=== PATIENT | female | born 1940 | race Caucasian/White ===

== ENCOUNTER 2016-12-06 08:57 | Outpatient (CLI) | payer MEDICARE, BC ==
[2016-12-06 10:30] LABS: #Lymphocytes 1.4 thou/uL (1.20-3.40); #Monocytes 0.5 thou/uL (0.11-0.59); #Neutrophils 3.7 thou/uL (1.40-6.50); %Basophils 0.6 % (0.0-1.0); %Eosinophils 0.3 % (0.0-10.0); %Lymphocytes 24.5 % (21.0-51.0); %Monocytes 9.4 % (0.0-10.0); Mean Platelet Volume 6.4 fL (7.4-10.4); Red Blood Cell (RBC) Count 4.67 mill/uL (4.20-5.40); White Blood Cell (WBC) Count 5.6 thou/uL (4.8-10.8)
[2016-12-06 10:47] LABS: Anion Gap 16 mmol/L (10-20); BUN (Urea Nitrogen) 18 mg/dL (9.8-20.1); Calc. Creatinine Clearance 0 mL/min (70-130); Calcium 10.1 mg/dL (7.8-10.44); Carbon Dioxide 26 mmol/L (23-31); Chloride 103 mmol/L (98-107); Estimated GFR-MDRD 48
== END 2016-12-06 08:58 | disposition home or self-care (01) ==
LOC: LABBT 08:57
PROVIDERS: ATTEND Orthopaedic Surgery Hand Surgery
DX: Z01.818 Encounter for other preprocedural examination (principal); S60.041A Contusion of right ring finger without damage to nail, initial encounter
CPT/HCPCS: 80048; 85025; 85610

== ENCOUNTER 2016-12-07 08:17 | Day surgery (SDC) | payer MEDICARE, BC ==
[2016-12-06 09:15] VITALS: BMI 28.3
[2016-12-07] MEDS ORDERED: Bacitracin Zinc Ointment 30 gm TUBE ONE (11:47)
[2016-12-07] MEDS ORDERED: Bupivacaine PF 0.5% 30 ML VIAL ONE (11:47)
[2016-12-07] MEDS ORDERED: Fentanyl 100 MCG/2 ML VIAL ONE ×2 (11:53→14:32)
[2016-12-07] MEDS ORDERED: Dexamethasone 20 MG/5 ML VIAL ONE (12:15)
[2016-12-07] MEDS ORDERED: Ondansetron HCl/PF 4 MG/2 ML Vial ONE (12:15)
[2016-12-07] MEDS ORDERED: Lidocaine 1% PF 5 ML VIAL ONE (12:15)
[2016-12-07] MEDS ORDERED: Metoclopramide HCl 10 MG/2 ML VIAL ONE (12:15)
[2016-12-07] MEDS ORDERED: Propofol 200 MG/20 ML VIAL ONE (12:15)
[2016-12-07] MEDS ORDERED: diphenhydrAMINE HCl 50 MG/ML 1 ML VIAL ONE (12:15)
[2016-12-07] MEDS ORDERED: Betamet Acet/Betamet Na Ph 30 MG/5 ML VIAL ONE (12:59)
[2016-12-07] MEDS ORDERED: Ketorolac Tromethamine 30 MG/ML VIAL ONE (14:26)
--- NOTE | 2016-12-08 00:50 | OP ---
DATE OF PROCEDURE: 12/07/2016 SURGEON: Lonny Bertrand M.D. ANESTHESIA: Slovak anesthesia. General LMA technique augmented by 12 mL metacarpophalangeal join t block. PREOPERATIVE DIAGNOSES: 1. 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 2. Flexor adhesions. 3. Extensor adhesions. POSTOPERATIVE DIAGNOSES: 1. 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 2. Flexor adhesions. 3. Extensor adhesions. 4. No defect in the existence of mass but very long 8 mm wide x 3 cm long fibrotic cord running from the A2 tigist to the volar aspect of the proximal phalangeal joint and the A3 tigist. Tight volar capsule and volar plate with no other adhesions. PROCEDURE PERFORMED: 1. Neuroplasty radial ulnar digital nerve under magnification of right ring finger. 2. Extensor tenolysis, right ring finger. 3. Flexor tenolysis, right ring finger. 4. Removal of fibrotic cord, right ring finger. 5. Volar capsulotomy with release, right ring finger. 6. Intraoperative injection of Celestone. COMPLICATIONS: None. PINNING: No. CELESTONE INJECTION: Yes. SPECIMEN: Adhesions sample. ESTIMATED BLOOD LOSS: 10 mL. TOURNIQUET TIME: 22 minutes. DESCRIPTION OF PROCEDURE: After successful general LMA technique, the limb was prepped and draped. The patient then had time out done appropriately. We injected the digit with 12 mL 0.5% Marcaine m etacarpophalangeal block level. We then tried to close the lysis of adhesions. This did not work. The patient then had the limb exsanguinated, tourniquet inflated to 250 mmHg pressure and we then m melissa a zigzag incision incorporating the transverse scar from the previous ring avulsion type 1 to 2 injury, carried through skin and subcutaneous tissue found extensor mechanism, and there was no visi ble defect in mechanism, only some mild adhesions to the underlying phalanges in the area of the pre vious laceration, so this was released, , and had 3 mL Celestone was placed underneath it. We then turned attention to the palmar side. We made a similar Ana incision incorporating 5 mm distal to the palmar interphalangeal joint crease and then all over to the level of the 5 mm proxim al to the metacarpophalangeal crease. As soon as we opened the skin, we could see a very large fibr otic cord and so it was resected in part after we infused the region. Now, it was resected, we have visualized the neurovascular bundles, we performed a neuroplasty. Rad ial and ulnar aspects have a clear artery on the radial side, but no true pulsatile artery on the ul deacon side, but it must be stated this was the case. Then, we visualized digital nerves as well and s pared them. We made an incision of tendon sheath just proximal to the A3 tigist, dissected down to the volar plate and then released the volar plate and the capsule and checked for any ligaments firs t on the radial side, then repeated the same techniques on the ulnar side. Then, the patient now garcia d a very slow but delivered over a 1 minute extension from -6 degrees to +5 hyperextension at the pr oximal interphalangeal joint. The patient then had the flexor tendons visualized and lifted up, the profundus was lifted up to and independent function released 45 degrees motion from this posi tion in flexion. Now, once we have done this and we were able to get the volar capsule release unde r the technique listed above, we then extended the digit to +5 without any other due resistance. We now replaced Celestone into the tendon, sent the tenolysis sample off, had +5 degrees hyperextens ion that we could now pass to achieve full flexion at the PIP joint. The patient had the tourniquet deflated. Hemostasis obtained. The wound was closed with interrupted 4-0 Monocryl and 4-0 nylon i n a simple pattern. This was also done in contralateral extremity. Bulky dressing was applied and the patient left the operating room and plan for numerous therapy without evidence of anesthetic or operative complication.
== END 2016-12-07 16:45 | disposition home or self-care (01) ==
LOC: SDC 08:17
PROVIDERS: ATTEND Orthopaedic Surgery Hand Surgery
PROC: 0RN Upper Joints, Release (ICD-10-PCS; principal; 2016-12-07)
PROC: 0LN70ZZ Release Right Hand Tendon, Open Approach (ICD-10-PCS; 2016-12-07)
DX: M24.541 Contracture, right hand (principal); M77.9 Enthesopathy, unspecified; J45.909 Unspecified asthma, uncomplicated; K21.9 Gastro-esophageal reflux disease without esophagitis; M06.9 Rheumatoid arthritis, unspecified; E78.5 Hyperlipidemia, unspecified; H35.30 Unspecified macular degeneration; Z91.048 Other nonmedicinal substance allergy status; Z90.710 Acquired absence of both cervix and uterus; Z98.890 Other specified postprocedural states; Z91.040 Latex allergy status; Z88.5 Allergy status to narcotic agent
CPT/HCPCS: 88304; 96374; J0702; J1100; J1200; J1885; J2001; J2405; J2704; J2765; J3010; S0020

== ENCOUNTER 2017-02-10 09:44 | Outpatient (CLI) | payer MEDICARE, BC | END 2017-02-10 09:45 | disposition home or self-care (01) | LOC: BICMAMMO 09:44 | PROVIDERS: ATTEND Family Medicine | DX: Z12.31 Encounter for screening mammogram for malignant neoplasm of breast (principal); Z13.820 Encounter for screening for osteoporosis; Z78.0 Asymptomatic menopausal state | CPT/HCPCS: 77063; 77067; 77080; G0202 ==

== ENCOUNTER 2017-07-21 08:30 | Inpatient (IN) | payer MEDICARE, BC ==
[2017-07-21 09:07] VITALS: BMI 28.7
[2017-08-02] MEDS ORDERED: CEFAZOLIN/Water 2 GM/20 ML SYRINGE ONE (06:59)
[2017-08-02] MEDS ORDERED: Sodium Chloride 0.9% 100 ML ONE (06:59)
[2017-08-02] MEDS ORDERED: Fentanyl 100 MCG/2 ML VIAL ONE ×5 (07:46→12:16)
[2017-08-02] MEDS ORDERED: Midazolam HCl 2 mg/2 ml Vial ONE (07:46)
[2017-08-02] MEDS ORDERED: Ondansetron HCl/PF 4 MG/2 ML Vial IVP PRN ×2 (09:04→11:25)
[2017-08-02] MEDS ORDERED: Promethazine HCl 25 MG/ML VIAL IM PRN ×2 (09:04→11:25)
[2017-08-02] MEDS ORDERED: HYDROcodone/Acetaminophen 10/325 mg Tablet PO PRN (09:04)
[2017-08-02] MEDS ORDERED: Zolpidem Tartrate 5 MG TAB PO PRN (09:04)
[2017-08-02] MEDS ORDERED: Acetaminophen 325 MG TAB PO PRN (09:04)
[2017-08-02] MEDS ORDERED: Fentanyl 100 MCG/2 ML VIAL SLOW IVP PRN (09:04)
[2017-08-02] MEDS ORDERED: traMADol HCl 50 MG TAB PO PRN (09:04)
[2017-08-02] MEDS ORDERED: diphenhydrAMINE 25 MG CAP PO PRN (09:04)
[2017-08-02] MEDS ORDERED: Tranexamic Acid 1,000 MG in Sodium Chloride 0.9% 100 ML IVPB SCH (09:15)
[2017-08-02] MEDS ORDERED: HYDROmorphone 2 MG/ML VIAL SLOW IVP PRN (11:25)
[2017-08-02] MEDS ORDERED: Promethazine HCl 25 MG/ML VIAL SLOW IVP PRN (11:25)
--- NOTE | 2017-08-02 11:25 | OP ---
DATE OF PROCEDURE: 08/02/2017 PREOPERATIVE DIAGNOSIS: End-stage bicompartmental osteoarthritis, right hip. POSTOPERATIVE DIAGNOSIS: End-stage bicompartmental osteoarthritis, right hip. OPERATIVE PROCEDURE: Press-Fit right total hip arthroplasty. SURGEON: Isaiah Bullard M.D. PREPRESS PROOFER: Minh Ramires PA-C. ANESTHESIA: General via endotracheal tube. COMPONENTS USED: [employer] primary Press-Fit size 2 Accolade hip stem with a primary Trita nium 54 mm Press-Fit cluster acetabular shell. A 36 mm 10-degree polyethylene fixed bearing insert w ith a standard offset 36 mm metallic femoral head. ESTIMATED BLOOD LOSS: Less than 100 mL. FINDINGS: End-stage severe degenerative bicompartmental disease, bone on bone arthrosis, periarticul ar osteophyte formation, large serous effusion, and hypertrophic synovium. DRAINS: None. SPECIMENS: None. COMPLICATIONS: None. COUNTS: Correct. INDICATIONS FOR SURGERY: Gemini is a 76-year-old white female who has had progressive right hip, oswaldo in and thigh pain amplified with standing and walking for the last 5-7 years. She has failed conserv ative management and elected to proceed with total hip arthroplasty as a treatment of her pain. PROCEDURE IN DETAIL: After informed consent was obtained in the preoperative holding area, the patie nt was taken to the operative suite where general anesthesia was induced. The patient was then posit ioned in the lateral decubitus position. The hip was then prepped and draped in usual sterile fashio n. The patient received preoperative antibiotics. Prior to incision, time-out was called and all me mbers of the surgical team agreed upon site, surgeon, and patient. After this, a longitudinal incisi on was made directly over the trochanter, noted by palpation extending 2 fingerbreadths above and bel ow the trochanter. The deeper subcutaneous layer was undermined with Bovie electrocautery. The ilio tibial band was encountered and incised sharply and the plane below this was developed bluntly. A grace retractor was placed to hold this opened. The lateral aspect of the trochanter and the abduct or muscles were encountered and then reflected anteriorly off the trochanter using Bovie electrocaute ry. Once this was completed, the anterior capsule was then encountered and identified and copious ca psulotomy was carried out, exposing the femoral neck and head. Dislocation maneuver was then performe d and an in situ provisional neck cut was then made using the oscillating saw. Attention was then tu rned to acetabular preparation and sequential reaming was carried out up to the appropriate diameter and a trial was then malleted into place with good firm resistance and no pullout. The permanent jackie tabular shell was then malleted squarely into place, as was the appropriate liner. Once completed, t he wound was copiously irrigated and attention was then turned to femoral preparation. Flexion and ex ternal rotation was performed of the exposed thigh and femoral elevators were then placed at the prox imal aspect of the wound. Canal finder was used to establish the length of the canal and sequential reaming was carried out, followed by broaching. Once the appropriate stability was established with the trial broaches with both flexion, extension and rotational stability, we did trial with neutral a nd 2 mm offset incremental necks. Once the appropriate size was decided upon, with good stability no rick with flexion, extension, internal and external rotation and shuck being negative, we removed the femoral trial broach and malletted into place the permanent prosthesis with good firm fit, which was also stable to rotation. Again, the hip felt very stable to flexion, extension, internal and externa l rotation. Leg lengths appeared near anatomic clinically and we were quite happy with prosthesis pl acement. Copious irrigation was then carried out through the entirety of the wound. Primary closure of the abductors was accomplished with interrupted #2 Vicryl [id number] stitches and the IT ban d was then closed with interrupted #2 Vicryl, oversewn with a #2 running barbed Quill stitch. Subcut aneous fascia was closed with running barbed Quill stitch and a subcuticular Monocryl barbed Quill st itch was used for skin closure and augmented with skin cement. A sterile dressing was applied. The p rocedure was terminated without any complication. All counts were correct. The patient was awakened in the operative suite and taken to the recovery room in stable condition.
[2017-08-02] MEDS: Ketorolac Tromethamine 30 MG/ML VIAL IM SCH ×2 (13:35→21:03)
[2017-08-02] MEDS: Sodium Chloride 0.9% 1,000 ML IV SCH ×3 (13:35→23:57)
--- NOTE | 2017-08-02 13:42 | RAD ---
TWO VIEWS RIGHT HIP: Date: 08-02-17 Comparison: 08-07-16 History: Evaluate hip following arthroplasty. FINDINGS: There is a right total hip arthroplasty present. There is no evidence for hardware failure. There is no displaced fracture or evidence of dislocation. There is post-operative gas present. IMPRESSION: Status post right total hip arthroplasty with no adverse features seen. POS: [facility]
[2017-08-02] MEDS ORDERED: ePHEDrine/0.9% NaCl/PF SYRINGE 50 mg/10 ml ONE (13:43)
[2017-08-02] MEDS ORDERED: Lidocaine 1% PF 5 ML VIAL ONE (13:43)
[2017-08-02] MEDS ORDERED: Glycopyrrolate 0.2 MG/ML 5 ML SYRINGE ONE (13:43)
[2017-08-02] MEDS ORDERED: PHENYLEPHRINE-NS 100 MCG/ML 10 ML SYRINGE ONE (13:43)
[2017-08-02] MEDS ORDERED: PROPOFOL 200 MG/20 ML VIAL ONE (13:43)
[2017-08-02] MEDS: Fentanyl 100 MCG/2 ML VIAL SLOW IVP PRN ×2 (14:06→18:26)
[2017-08-02] MEDS ORDERED: Mag-Al 1200 mg/1200 mg/30 ML UDCUP PO PRN (14:30)
[2017-08-02] MEDS ORDERED: Senokot 8.6 MG TAB PO PRN (14:30)
[2017-08-02] MEDS ORDERED: Artificial Tears 18 DROP/0.9 ML EA EYE PRN (14:30)
[2017-08-02] MEDS ORDERED: Sodium Chloride 0.65% Nasal 44 ML BOT EA NARE PRN (14:30)
[2017-08-02] MEDS ORDERED: Chloraseptic Spray 180 ml Bottle PO PRN (14:30)
[2017-08-02] MEDS ORDERED: Loperamide HCl 2 MG CAP PO PRN (14:30)
[2017-08-02] MEDS ORDERED: Calcium Carbonate 500 MG ChewTAB PO PRN (14:30)
[2017-08-02] MEDS ORDERED: Diabetic Tussin 200 MG/10 ML UDCUP PO PRN (14:30)
[2017-08-02] MEDS ORDERED: Milk Of Magnesia 30 ML UDCUP PO PRN (14:30)
[2017-08-02] MEDS ORDERED: Loratadine 10 MG TAB PO PRN (14:30)
[2017-08-02] MEDS ORDERED: hydrALAZINE 20 MG/ML VIAL SLOW IVP PRN (14:30)
[2017-08-02] MEDS ORDERED: Eucerin (Mineral Oil/Petrolatum,White) 30 gm Jar TOP PRN (14:30)
[2017-08-02] MEDS: CEFAZOLIN/Water 2 GM/20 ML SYRINGE SLOW IVP SCH ×2 (14:54→23:56)
--- NOTE | 2017-08-02 14:59 | CON ---
DATE OF CONSULTATION: 08/02/2017 PRIMARY CARE PHYSICIAN: Dr. Liat Suárez. PRIMARY ATTENDING: Dr. Isaiah Bullard. REASON FOR CONSULT: Medical comanagement. REASON FOR ADMISSION: Elective admission for right hip replacement. HISTORY OF PRESENT ILLNESS: A 76-year-old female, who has multiple medical problems, who is experiencing increasing right hip pain from osteoarthritis. Pain was getting worse with activity and walking that was limiting her physical activity. Her walking distance was also significantly reduced because of pain. The patient had all trial of conservative measures through Dr. Bullard in his office, but patient did not have any improvement and her symptoms is gradually getting worse and that is why patient decided to go for right hip replacement, which was done earlier today by Dr. Bullard without any complication. Postoperatively, at [facility], we were consulted for medical comanagement. The patient was complaining of pain at surgical site. She denies any UTI symptoms. She denies any constipation, diarrhea, melena, hematochezia. She denies any chest pain, palpitation, shortness of breath. She denies any fever or chills. She denies any viral infection. REVIEW OF SYSTEMS: The following complete review of systems was negative, unless otherwise mentioned in the HPI or below: Constitutional: Weight loss or gain, ability to conduct usual activities. Skin: Rash, itching. Eyes: Double vision, pain. ENT/Mouth: Nose bleeding, neck stiffness, pain, tenderness. Cardiovascular: Palpitations, dyspnea on exertion, orthopnea. Respiratory: Shortness of breath, wheezing, cough, hemoptysis, fever or night sweats. Gastrointestinal: Poor appetite, abdominal pain, heartburn, nausea, vomiting, constipation, or diarrhea. Genitourinary: Urgency, frequency, dysuria, nocturia. Musculoskeletal: Pain, swelling. Neurologic/Psychiatric: Anxiety, depression. Allergy/Immunologic: Skin rash, bleeding tendency. Please see my HPI for pertinent positive and negative. All other review of system reviewed and negative except as mentioned in the HPI. HOSPITAL COURSE: Reviewed. PAST MEDICAL HISTORY: Asthma/COPD, gastroesophageal reflux disease, osteoarthritis, dyslipidemia, pseudogout, sensorineural deafness, peptic ulcer disease, macular degeneration, and dyslipidemia. PAST SURGICAL HISTORY: Hysterectomy, EGD and colonoscopy in 2010, bunionectomy , status post right total hip arthroplasty. PAST PSYCHIATRIC HISTORY: Reviewed and negative. FAMILY HISTORY: Father diseased and he had hypertension, coronary artery disease. Mother also and she had hypertension and stroke. One sibling has a history of hypertension and schizophrenia. Colon cancer to paternal grandfather. Maternal uncle had leukemia. SOCIAL HISTORY: Patient is . She denies any tobacco, alcohol or illicit drug abuse. She is retired. ALLERGIES: ADHESIVE TAPE, LATEX, NATURAL RUBBER. CURRENT HOME MEDICATIONS: Ventolin nebulization 2.5 mg t.i.d., Celebrex 200 mg p.o. at bedtime, multivitamin 1 tablet p.o. daily, omeprazole 20 mg p.o. daily, and Probenecid with Colchicine 0.5/500 one tablet p.o. at bedtime. PHYSICAL EXAMINATION: VITAL SIGNS: Temperature 97.6, pulse 61, respiratory rate 18, saturation 95% on room air, blood pressure 166/71, and weight 178 pounds. GENERAL: Patient is currently alert, awake, no acute distress. HEENT: Normocephalic, atraumatic. Eyes: Pupils round, reactive to light. Extraocular muscle intact. ENT: Oropharynx within normal limits. Moist mucous membranes. No oral lesion, no pharyngeal erythema, no exudate. NECK: Supple, no JVD, no thyromegaly, no carotid bruit, no jugular venous distention. LUNGS: Clear to auscultation without any rhonchi or rales. CARDIAC: S1 and S2 regular. No murmur, no gallop, no rub. ABDOMEN: Soft, bowel sounds present, nontender, nondistended. No organomegaly , no mass, no suprapubic tenderness. BACK: Unremarkable, no CVA tenderness. EXTREMITIES: Upper extremity passive movement of all joints are normal. Lower extremities: No edema. Surgical site is clean and healthy and covered with a dressing. NEUROLOGIC: Nonfocal examination. SIGNIFICANT LABORATORY DATA: CBC: WBC 4.2, hemoglobin 12.7, platelet 269. INR 1.0. BMP: Sodium 142, potassium 4.6, chloride 108, carbon dioxide 26, anion gap 13, BUN 17, creatinine 0.91, glucose 87, calcium 9.5. Urinalysis normal. Hip x-ray status post right total hip arthroplasty changes. Chest x-ray based on my review, no acute cardiopulmonary process. Electrocardiogram based on my review reveals normal sinus rhythm, nonspecific ST -T changes. ASSESSMENT AND PLAN: 1. Status post right total hip replacement for right osteoarthritis. At this point, patient is medically stable. She will get aspirin 81 mg p.o. b.i.d. for thrombosis prophylaxis as per protocol. Her pain will be controlled with pain medication. She will have PT, OT as per [facility] protocol treatment. 2. Asthma/Chronic obstructive pulmonary disease. Continue albuterol nebulization t.i.d. 3. Gastroesophageal reflux disease. Continue Protonix 40 mg p.o. daily. 4. History of pseudogout. Continue Probenecid with Colchicine 0.5/500 one tablet p.o. at bedtime. 5. Deep venous thrombosis prophylaxis. Patient will get aspirin 81 mg p.o. b.i.d. as per protocol. 6. Gastrointestinal prophylaxis. Protonix 40 mg p.o. daily. CODE STATUS: The patient is FULL CODE. Patient does not have any surrogate decision maker. She is making her decision by herself. Disposition plan based on clinical course. Thank you for the consult. We will follow up with you while in hospital. JEANNIE
[2017-08-02] MEDS ORDERED: Albuterol Sulfate 2.5 mg/3 ml Neb NEB PRN (15:00)
[2017-08-02] MEDS: Senokot S 8.6-50 MG TAB PO SCH (20:55)
[2017-08-02] MEDS: Ferrous Gluconate 324 MG TAB PO SCH (20:59)
[2017-08-02] MEDS ORDERED: CeleCOXIB 100 MG CAP PO SCH (21:00)
[2017-08-02] MEDS ORDERED: COLCHICINE PO SCH (21:00)
[2017-08-02] MEDS ORDERED: PROBENECID PO SCH (21:00)
[2017-08-02] MEDS: HYDROcodone/Acetaminophen 10/325 mg Tablet PO PRN (21:01)
[2017-08-03] MEDS: HYDROcodone/Acetaminophen 10/325 mg Tablet PO PRN ×2 (02:10→20:06)
[2017-08-03 04:31] LABS: Hemoglobin 11.1 g/dL (12.0-16.0); Mean Corpuscular HGB CONC 35.2 g/dL (32.0-36.0); Mean Corpuscular Hemoglobin 31.6 pg (27.0-31.0); Mean Corpuscular Volume 89.8 fl (81.0-99.0); Mean Platelet Volume 6.2 fL (7.4-10.4); Platelet Count 216 thou/uL (130-400); RBC Distribution Width 11.9 % (11.5-14.5); White Blood Cell (WBC) Count 4.8 thou/uL (4.8-10.8)
[2017-08-03] MEDS: Ketorolac Tromethamine 30 MG/ML VIAL IM SCH ×3 (05:32→21:25)
[2017-08-03] MEDS: Ondansetron ODT 4 MG TAB PO PRN ×2 (06:35→13:06)
[2017-08-03] MEDS ORDERED: Metoclopramide HCl 10 MG/2 ML VIAL IVP PRN (08:12)
[2017-08-03] MEDS: Multivitamin W/ Minerals 1 TAB PO SCH (09:06)
[2017-08-03] MEDS: Multivit, Therapeutic 1 TAB PO SCH (09:06)
[2017-08-03] MEDS: Ferrous Gluconate 324 MG TAB PO SCH ×2 (09:06→20:05)
[2017-08-03] MEDS: Senokot S 8.6-50 MG TAB PO SCH ×2 (09:07→20:05)
--- NOTE | 2017-08-03 10:43 | PDOC.PN ---
- Subjective Encounter Start Date: 08/03/17 Encounter Start Time: 08:30 -: old records requested/rev Patient seen and examined. this morning she had nausea and vomiting, No overnight events - Objective Resuscitation Status: Resuscitation Status FULL:Full Resuscitation MAR Reviewed: Yes Vital Signs & Weight: Vital Signs (12 hours) Temp Pulse Resp BP Pulse Ox 08/03/17 07:40 97.4 F L 78 18 110/57 L 93 L 08/03/17 04:00 98.1 F 83 18 119/69 93 L 08/02/17 23:57 98.7 F 91 16 143/72 H 92 L Weight Weight 178 lb I&O: 08/02/17 08/03/17 08/04/17 06:59 06:59 06:59 Intake Total 2180 Output Total 2900 Balance -720 Result Diagrams: 08/03/17 03:35 Phys Exam - Physical Examination Constitutional: NAD HEENT: PERRLA, moist MMs, sclera anicteric Neck: no JVD, supple Respiratory: no wheezing, no rales, no rhonchi Cardiovascular: RRR, no significant murmur, no rub Gastrointestinal: soft, non-tender, no distention, positive bowel sounds francis+ Musculoskeletal: no edema, pulses present surgical site with dressing Neurological: non-focal, normal sensation, moves all 4 limbs Psychiatric: normal affect, A&O x 3 Skin: no rash, normal turgor Dx/Plan (1) Status post right hip replacement Code(s): Z96.641 - PRESENCE OF RIGHT ARTIFICIAL HIP JOINT Status: Acute (2) Asthma Code(s): J45.909 - UNSPECIFIED ASTHMA, UNCOMPLICATED Status: Chronic (3) GERD (gastroesophageal reflux disease) Code(s): K21.9 - GASTRO-ESOPHAGEAL REFLUX DISEASE WITHOUT ESOPHAGITIS Status: Chronic (4) Osteoarthritis Code(s): M19.90 - UNSPECIFIED OSTEOARTHRITIS, UNSPECIFIED SITE Status: Chronic (5) Pseudogout Code(s): M11.20 - OTHER CHONDROCALCINOSIS, UNSPECIFIED SITE Status: Chronic - Plan cont current plan of care, plan discussed w/ family, PT/OT, social human services assistants * continue aspirin for DVT prophylaxis * continue protonix for GI prophylaxis * Nerve block as per anesthesia * continue ferrous gluconate * pain controlled with current pain meds. * PT/OT as per [facility] protocol * medication reviewed as below * symptomatic treatment * discharge based on primary team * resume home meds on discharge. * add reglan for nausea and vomiting Review of Systems - Review of Systems Eyes: negative: Pain, Vision Change, Conjunctivae Inflammation, Eyelid Inflammation, Redness, Other ENT: negative: Ear Pain, Ear Discharge, Nose Pain, Nose Discharge, Nose Congestion, Mouth Pain, Mouth Swelling, Throat Pain, Throat Swelling, Other Respiratory: negative: Cough, Dry, Shortness of Breath, Hemoptysis, SOB with Excertion, Pleuritic Pain, Sputum, Wheezing Cardiovascular: negative: chest pain, palpitations, orthopnea, paroxysmal nocturnal dyspnea, edema, light headedness, other Gastrointestinal: Nausea, Vomiting. negative: Abdominal Pain, Diarrhea, Constipation, Melena, Hematochezia, Other Genitourinary: negative: Dysuria, Frequency, Incontinence, Hematuria, Retention , Other Musculoskeletal: negative: Neck Pain, Shoulder Pain, Arm Pain, Back Pain, Hand Pain, Leg Pain, Foot Pain, Other Skin: negative: Rash, Lesions, Nj, Bruising, Other - Medications/Allergies Allergies/Adverse Reactions: Allergies Allergy/AdvReac Type Severity Reaction Status Date / Time adhesive Allergy BLISTERS Verified 07/21/17 09:10 adhesive tape Allergy BLISTERS Verified 07/21/17 09:10 Latex, Natural Rubber Allergy Verified 07/21/17 09:10 STEROIDS Allergy SEVERE Uncoded 12/06/16 09:19 DEPRESSION Medications: Current Medications Acetaminophen (Tylenol) 650 mg PO Q4H PRN PRN Reason: SINGH/ T > 101F; Mild Pain (1-3) Hydrocodone Bitart/Acetaminophen ([place] 10/325) 1 tab PO Q4H PRN PRN Reason: Moderate Pain (4-6) Hydrocodone Bitart/Acetaminophen ([place] 10/325) 2 tab PO Q4H PRN PRN Reason: Severe Pain (7-10) Last Admin: 08/03/17 02:10 Dose: 2 tab Al Hydroxide/Mg Hydroxide (Maalox) 15 ml PO Q4H PRN PRN Reason: Heartburn or Indigestion Albuterol Sulfate (Ventolin) 2.5 mg NEB TID-RT PRN PRN Reason: SOB &/or Wheezing Artificial Tears (Tears Naturale) 0 drop EA EYE PRN PRN PRN Reason: Dry Eyes Aspirin (Aspirin Chewable) 81 mg PO BID [facility] Last Admin: 08/02/17 20:59 Dose: 81 mg Calcium Carbonate (Tums) 1,000 mg PO Q4H PRN PRN Reason: Heartburn or Indigestion Diphenhydramine HCl (Benadryl) 25 mg PO Q6H PRN PRN Reason: Itching Fentanyl (Sublimaze) 50 mcg SLOW IVP Q30MIN PRN PRN Reason: Moderate Pain (4-6) Last Admin: 08/02/17 18:26 Dose: 50 mcg Fentanyl (Sublimaze) 100 mcg SLOW IVP Q1H PRN PRN Reason: Severe Pain (7-10) Ferrous Gluconate (Fergon) 324 mg PO BID [facility] Last Admin: 08/03/17 09:06 Dose: Not Given Guaifenesin (Robitussin Sf) 200 mg PO Q4H PRN PRN Reason: Cough Hydralazine HCl (Apresoline) 10 mg SLOW IVP Q4H PRN PRN Reason: Systolic BP > 180 Sodium Chloride (Normal Saline 0.9%) 1,000 mls @ 100 mls/hr IV .Q10H [facility] Last Admin: 08/02/17 23:57 Dose: 1,000 mls Iron/Minerals/Multivitamins (Theragran M) 1 tab PO DAILY [facility] Last Admin: 08/03/17 09:06 Dose: Not Given Ketorolac Tromethamine (Toradol) 15 mg IM Q8HR [facility] Stop: 08/04/17 14:01 Last Admin: 08/03/17 05:32 Dose: 15 mg Loperamide HCl (Imodium) 2 mg PO PRN PRN PRN Reason: Diarrhea/Loose Stools Loratadine (Claritin) 10 mg PO DAILYPRN PRN PRN Reason: Sinus Symptoms Magnesium Hydroxide (Milk Of Magnesium) 30 ml PO DAILYPRN PRN PRN Reason: Constipation Metoclopramide HCl (Reglan) 10 mg IVP Q8H PRN PRN Reason: Nausea/Vomiting Last Admin: 08/03/17 09:00 Dose: 10 mg Mineral Oil/White Petrolatum (Eucerin Cream) 0 gm TOP BIDPRN PRN PRN Reason: Dry Skin Multivitamins (Theragran) 1 tab PO DAILY [facility] Last Admin: 08/03/17 09:06 Dose: Not Given Ondansetron HCl (Zofran) 4 mg IVP Q6H PRN PRN Reason: Nausea/Vomiting Ondansetron HCl (Zofran Odt) 4 mg PO Q6H PRN PRN Reason: Nausea/Vomiting Last Admin: 08/03/17 06:35 Dose: 4 mg Pantoprazole Sodium (Protonix) 40 mg PO DAILY LUIS ALFREDO (Probenecid/Colchicine [ Probenecid/Colchicine] 1 Tablet ) Hm Med 0 each PO HS LUIS ALFREDO Phenol (Chloraseptic [place] 180 Ml Bot) 0 ml PO PRN PRN PRN Reason: Sore Throat Senna (Senokot) 2 tab PO HSPRN PRN PRN Reason: Constipation Senna/Docusate Sodium (Senokot S) 2 tab PO BID [facility] Last Admin: 08/03/17 09:07 Dose: Not Given Sodium Chloride (Flush - Normal Saline) 10 ml IVF PRN PRN PRN Reason: Saline Flush Sodium Chloride ([place] Nasal [place] 0.65%) 0 ml EA NARE QIDPRN PRN PRN Reason: Nasal Congestion Tramadol HCl (Ultram) 100 mg PO Q6H PRN PRN Reason: Mild Pain (1-3) Zolpidem Tartrate (Ambien) 5 mg PO HSPRN PRN PRN Reason: Insomnia
[2017-08-03] MEDS: Sodium Chloride 0.9% 1,000 ML IV SCH (14:04)
[2017-08-04] MEDS: Sodium Chloride 0.9% 1,000 ML IV SCH ×2 (01:54→14:53)
[2017-08-04 06:19] LABS: Mean Corpuscular HGB CONC 34.4 g/dL (32.0-36.0); Mean Corpuscular Hemoglobin 31.4 pg (27.0-31.0); Mean Corpuscular Volume 91.2 fl (81.0-99.0); Mean Platelet Volume 6.9 fL (7.4-10.4); Platelet Count 162 thou/uL (130-400); RBC Distribution Width 12.2 % (11.5-14.5)
[2017-08-04] MEDS: Ketorolac Tromethamine 30 MG/ML VIAL IM SCH ×2 (07:00→18:02)
[2017-08-04] MEDS: Multivitamin W/ Minerals 1 TAB PO SCH (08:33)
[2017-08-04] MEDS: Ferrous Gluconate 324 MG TAB PO SCH (08:33)
[2017-08-04] MEDS: Senokot S 8.6-50 MG TAB PO SCH (08:33)
[2017-08-04] MEDS: Multivit, Therapeutic 1 TAB PO SCH (08:34)
--- NOTE | 2017-08-04 10:26 | PDOC.PN ---
- Subjective Encounter Start Date: 08/04/17 Encounter Start Time: 07:55 Patient seen and examined. No new complaints. No overnight events - Objective Resuscitation Status: Resuscitation Status FULL:Full Resuscitation MAR Reviewed: Yes Vital Signs & Weight: Vital Signs (12 hours) Temp Pulse Resp BP Pulse Ox 08/04/17 07:55 98.7 F 75 16 125/54 L 93 L 08/04/17 04:18 98.4 F 80 19 121/65 91 L 08/04/17 00:49 98.7 F 83 14 118/63 91 L Weight Admit Weight 178 lb Weight 178 lb I&O: 08/03/17 08/04/17 08/05/17 06:59 06:59 06:59 Intake Total 2180 1010 960 Output Total 2900 2000 700 Balance -720 -990 260 Result Diagrams: 08/04/17 05:21 Phys Exam - Physical Examination Constitutional: NAD HEENT: PERRLA, moist MMs, sclera anicteric Neck: no JVD, supple Respiratory: no wheezing, no rales, no rhonchi Cardiovascular: RRR, no significant murmur, no rub Gastrointestinal: soft, non-tender, no distention, positive bowel sounds Musculoskeletal: no edema, pulses present surgical site with dressing Neurological: non-focal, normal sensation, moves all 4 limbs Psychiatric: normal affect, A&O x 3 Dx/Plan (1) Status post right hip replacement Code(s): Z96.641 - PRESENCE OF RIGHT ARTIFICIAL HIP JOINT Status: Acute (2) Asthma Code(s): J45.909 - UNSPECIFIED ASTHMA, UNCOMPLICATED Status: Chronic (3) GERD (gastroesophageal reflux disease) Code(s): K21.9 - GASTRO-ESOPHAGEAL REFLUX DISEASE WITHOUT ESOPHAGITIS Status: Chronic (4) Osteoarthritis Code(s): M19.90 - UNSPECIFIED OSTEOARTHRITIS, UNSPECIFIED SITE Status: Chronic (5) Pseudogout Code(s): M11.20 - OTHER CHONDROCALCINOSIS, UNSPECIFIED SITE Status: Chronic - Plan cont current plan of care, plan discussed w/ family, PT/OT * continue aspirin for DVT prophylaxis * continue protonix for GI prophylaxis * continue ferrous gluconate * pain controlled with current pain meds. * PT/OT as per [facility] protocol, outpt rehab after discharge * medication reviewed as below * symptomatic treatment * possible discharge today based on primary team * resume home meds on discharge. Review of Systems - Review of Systems Eyes: negative: Pain, Vision Change, Conjunctivae Inflammation, Eyelid Inflammation, Redness, Other ENT: negative: Ear Pain, Ear Discharge, Nose Pain, Nose Discharge, Nose Congestion, Mouth Pain, Mouth Swelling, Throat Pain, Throat Swelling, Other Respiratory: negative: Cough, Dry, Shortness of Breath, Hemoptysis, SOB with Excertion, Pleuritic Pain, Sputum, Wheezing Cardiovascular: negative: chest pain, palpitations, orthopnea, paroxysmal nocturnal dyspnea, edema, light headedness, other Gastrointestinal: negative: Nausea, Vomiting, Abdominal Pain, Diarrhea, Constipation, Melena, Hematochezia, Other Genitourinary: negative: Dysuria, Frequency, Incontinence, Hematuria, Retention , Other Musculoskeletal: negative: Neck Pain, Shoulder Pain, Arm Pain, Back Pain, Hand Pain, Leg Pain, Foot Pain, Other Skin: negative: Rash, Lesions, Nj, Bruising, Other - Medications/Allergies Allergies/Adverse Reactions: Allergies Allergy/AdvReac Type Severity Reaction Status Date / Time adhesive Allergy BLISTERS Verified 07/21/17 09:10 adhesive tape Allergy BLISTERS Verified 07/21/17 09:10 Latex, Natural Rubber Allergy Verified 07/21/17 09:10 STEROIDS Allergy SEVERE Uncoded 12/06/16 09:19 DEPRESSION Medications: Current Medications Acetaminophen (Tylenol) 650 mg PO Q4H PRN PRN Reason: SINGH/ T > 101F; Mild Pain (1-3) Hydrocodone Bitart/Acetaminophen (Vilas 10/325) 1 tab PO Q4H PRN PRN Reason: Moderate Pain (4-6) Hydrocodone Bitart/Acetaminophen (Vilas 10/325) 2 tab PO Q4H PRN PRN Reason: Severe Pain (7-10) Last Admin: 08/03/17 20:06 Dose: 2 tab Al Hydroxide/Mg Hydroxide (Maalox) 15 ml PO Q4H PRN PRN Reason: Heartburn or Indigestion Albuterol Sulfate (Ventolin) 2.5 mg NEB TID-RT PRN PRN Reason: SOB &/or Wheezing Artificial Tears (Tears Naturale) 0 drop EA EYE PRN PRN PRN Reason: Dry Eyes Aspirin (Aspirin Chewable) 81 mg PO BID LUIS ALFREDO Last Admin: 08/04/17 08:33 Dose: 81 mg Calcium Carbonate (Tums) 1,000 mg PO Q4H PRN PRN Reason: Heartburn or Indigestion Diphenhydramine HCl (Benadryl) 25 mg PO Q6H PRN PRN Reason: Itching Fentanyl (Sublimaze) 50 mcg SLOW IVP Q30MIN PRN PRN Reason: Moderate Pain (4-6) Last Admin: 08/02/17 18:26 Dose: 50 mcg Fentanyl (Sublimaze) 100 mcg SLOW IVP Q1H PRN PRN Reason: Severe Pain (7-10) Ferrous Gluconate (Fergon) 324 mg PO BID [facility] Last Admin: 08/04/17 08:33 Dose: 324 mg Guaifenesin (Robitussin Sf) 200 mg PO Q4H PRN PRN Reason: Cough Hydralazine HCl (Apresoline) 10 mg SLOW IVP Q4H PRN PRN Reason: Systolic BP > 180 Sodium Chloride (Normal Saline 0.9%) 1,000 mls @ 100 mls/hr IV .Q10H [facility] Last Admin: 08/04/17 01:54 Dose: Not Given Iron/Minerals/Multivitamins (Theragran M) 1 tab PO DAILY [facility] Last Admin: 08/04/17 08:33 Dose: 1 tab Ketorolac Tromethamine (Toradol) 15 mg IM Q8HR [facility] Stop: 08/04/17 14:01 Last Admin: 08/04/17 07:00 Dose: 15 mg Loperamide HCl (Imodium) 2 mg PO PRN PRN PRN Reason: Diarrhea/Loose Stools Loratadine (Claritin) 10 mg PO DAILYPRN PRN PRN Reason: Sinus Symptoms Magnesium Hydroxide (Milk Of Magnesium) 30 ml PO DAILYPRN PRN PRN Reason: Constipation Metoclopramide HCl (Reglan) 10 mg IVP Q8H PRN PRN Reason: Nausea/Vomiting Last Admin: 08/03/17 09:00 Dose: 10 mg Mineral Oil/White Petrolatum (Eucerin Cream) 0 gm TOP BIDPRN PRN PRN Reason: Dry Skin Multivitamins (Theragran) 1 tab PO DAILY [facility] Last Admin: 08/04/17 08:34 Dose: Not Given Ondansetron HCl (Zofran) 4 mg IVP Q6H PRN PRN Reason: Nausea/Vomiting Ondansetron HCl (Zofran Odt) 4 mg PO Q6H PRN PRN Reason: Nausea/Vomiting Last Admin: 08/03/17 13:06 Dose: 4 mg Pantoprazole Sodium (Protonix) 40 mg PO DAILY [facility] Last Admin: 08/04/17 08:33 Dose: 40 mg (Probenecid/Colchicine [ Probenecid/Colchicine] 1 Tablet ) Hm Med 0 each PO HS [facility] Phenol (Chloraseptic Bourbon 180 Ml Bot) 0 ml PO PRN PRN PRN Reason: Sore Throat Senna (Senokot) 2 tab PO HSPRN PRN PRN Reason: Constipation Senna/Docusate Sodium (Senokot S) 2 tab PO BID [facility] Last Admin: 08/04/17 08:33 Dose: 2 tab Sodium Chloride (Flush - Normal Saline) 10 ml IVF PRN PRN PRN Reason: Saline Flush Last Admin: 08/03/17 21:25 Dose: 10 ml Sodium Chloride (Coram Nasal Bourbon 0.65%) 0 ml EA NARE QIDPRN PRN PRN Reason: Nasal Congestion Tramadol HCl (Ultram) 100 mg PO Q6H PRN PRN Reason: Mild Pain (1-3) Zolpidem Tartrate (Ambien) 5 mg PO HSPRN PRN PRN Reason: Insomnia
[2017-08-04 11:59] VITALS: BP 121/58; TEMP 97.6
--- NOTE | 2017-08-05 07:12 | DIS ---
DATE OF ADMISSION: 08/02/2017 DATE OF DISCHARGE: 08/04/2017 DISCHARGE DISPOSITION: Home. PRIMARY DISCHARGE DIAGNOSIS: Status post right hip replacement. SECONDARY DISCHARGE DIAGNOSES: Asthma, GERD, osteoarthritis, pseudogout. PRIMARY PROCEDURE/OPERATION: Right hip replacement. RADIOLOGICAL INVESTIGATION: Hip x-ray. SIGNIFICANT LABORATORY DATA: Hemoglobin 11.0. DISCHARGE MEDICATIONS: Ventolin nebulization t.i.d., Celebrex 200 mg p.o. at bedtime, Easley 1-2 tabl ets q.6 hourly p.r.n., multivitamin 1 tablet p.o. daily, omeprazole 20 mg p.o. daily. probenecid wit h colchicine 1 tablet p.o. at bedtime, aspirin 81 mg p.o. b.i.d. CONTRAINDICATIONS: None. CODE STATUS: FULL CODE. INPATIENT CONSULTANTS: Dr. Bullard was primary while in hospital. Sound Team was consulted for medic al comanagement. TEST RESULTS PENDING ON DISCHARGE: None. ALLERGIES: ADHESIVE and NATURAL RUBBER. DISCHARGE PLAN: Post hospital, the patient will follow up with primary care physician, Dr. Bullard as instructed. The patient has appointment with Dr. Bullard on 08/17/2017 at 10:00 a.m. HOSPITAL COURSE: A 76-year-old female who was admitted for right hip replacement which was done by Ankit Bullard and postoperatively Sound Team was consulted for medical comanagement. The patient's medic al problems remains stable while in hospital and upon discharge, we continued her home medication and the patient was discharged home in the evening time. Please see my progress note from today for further detail.
== END 2017-08-04 18:03 | disposition home or self-care (01) | DRG 470 ==
LOC: SJJU 08-02 05:33
PROVIDERS: ADMIT Orthopaedic Surgery; ATTEND Orthopaedic Surgery
PROC: 0SR902A Replacement of Right Hip Joint with Metal on Polyethylene Synthetic Substitute, Uncemented, Open Approach (ICD-10-PCS; principal; 2017-08-02)
DX: M16.11 Unilateral primary osteoarthritis, right hip (principal); J45.909 Unspecified asthma, uncomplicated; K21.9 Gastro-esophageal reflux disease without esophagitis; E78.5 Hyperlipidemia, unspecified; M06.9 Rheumatoid arthritis, unspecified; E78.00 Pure hypercholesterolemia, unspecified; M11.20 Other chondrocalcinosis, unspecified site; Z90.710 Acquired absence of both cervix and uterus
CPT/HCPCS: 36415; 85027; C1776; G8978-GP-CM; G8979-GP-CK; G8987-GO-CK; G8988-GO-CI; J1885; J2001; J2250; J2704; J2765; J3010; J3370; J7050; Q0162

== ENCOUNTER 2017-07-21 08:43 | Outpatient (CLI) | payer MEDICARE, BC ==
[2017-07-21 10:30] LABS: Bilirubin Negative (Negative); Blood, Urine Negative (Negative); Clarity CLEAR (Clear); Glucose, Urine (Dipstick) Negative (Negative); Leukocyte Negative (Negative); Nitrite Negative (Negative); Protein, Urine (Dipstick) Negative (Neg-Trace); Specific Gravity, Urine 1.011 (1.002-1.036); Urobilinogen 0.2 mg/dL (0.2-1.0); pH, Urine 5.5 (5.0-9.0)
[2017-07-21 10:35] LABS: Bacteria/HPF None Seen HPF (None Seen); Hyaline Casts/LPF 0-3 HYALINE CAST LPF (0-3 Hyaline); Pathc Cast-AUWi Flag 0.58 (0-2.49); RBC/HPF 0-3 HPF (0-3); Squamous Epithelial 0-3 HPF (0-3); WBC/HPF 0-3 HPF (0-3)
--- NOTE | 2017-07-21 11:44 | RAD ---
TWO VIEWS CHEST: Comparison: 04-22-09 History: Pre-operative radiograph. FINDINGS: Two views of the chest show normal sized cardiomediastinal silhouette. There is no evidence of consol idation, mass, or pleural effusion. The bones are unremarkable. IMPRESSION: No evidence of acute cardiopulmonary disease. POS: [facility]
== END 2017-07-21 08:44 | disposition home or self-care (01) ==
LOC: LABBT 08:43
PROVIDERS: ATTEND Orthopaedic Surgery
DX: Z01.818 Encounter for other preprocedural examination (principal); M16.11 Unilateral primary osteoarthritis, right hip
CPT/HCPCS: 71046; 81001; 87081; 93005; 93010

== ENCOUNTER 2017-07-27 11:24 | Outpatient (CLI) | payer MEDICARE, BC ==
[2017-07-27 11:55] LABS: #Lymphocytes 1.3 thou/uL (1.20-3.40); #Monocytes 0.4 thou/uL (0.11-0.59); #Neutrophils 2.5 thou/uL (1.40-6.50); %Basophils 0.1 % (0.0-1.0); %Eosinophils 0.2 % (0.0-10.0); %Lymphocytes 30.8 % (21.0-51.0); %Neutrophils 59.9 % (42.0-75.0); Hemoglobin 12.7 g/dL (12.0-16.0); Mean Corpuscular HGB CONC 35.6 g/dL (32.0-36.0); Mean Corpuscular Hemoglobin 31.7 pg (27.0-31.0); Mean Corpuscular Volume 89.1 fl (81.0-99.0); Mean Platelet Volume 6.1 fL (7.4-10.4); Platelet Count 269 thou/uL (130-400); RBC Distribution Width 11.7 % (11.5-14.5); Red Blood Cell (RBC) Count 4.02 mill/uL (4.20-5.40); White Blood Cell (WBC) Count 4.2 thou/uL (4.8-10.8)
[2017-07-27 12:01] LABS: Prothrombin Time 13.2 SEC (12.0-14.7)
[2017-07-27 12:30] LABS: Anion Gap 13 mmol/L (10-20); BUN (Urea Nitrogen) 17 mg/dL (9.8-20.1); Calc. Creatinine Clearance 0 mL/min (70-130); Calcium 9.5 mg/dL (7.8-10.44); Carbon Dioxide 26 mmol/L (23-31); Chloride 108 mmol/L (98-107); Estimated GFR-MDRD 60; Glucose 87 mg/dL (83-110); Potassium 4.6 mmol/L (3.5-5.1); Sodium 142 mmol/L (136-145)
== END 2017-07-27 11:25 | disposition home or self-care (01) ==
LOC: LABBT 11:24
PROVIDERS: ATTEND Orthopaedic Surgery
DX: Z01.812 Encounter for preprocedural laboratory examination (principal); M16.11 Unilateral primary osteoarthritis, right hip
CPT/HCPCS: 80048; 85025; 85610; 86850; 86900; 86901

== ENCOUNTER 2018-02-13 10:55 | Outpatient (CLI) | payer MEDICARE, BC | END 2018-02-13 10:56 | disposition home or self-care (01) | LOC: BICMAMMO 10:55 | PROVIDERS: ATTEND Family Medicine | DX: Z12.31 Encounter for screening mammogram for malignant neoplasm of breast (principal) | CPT/HCPCS: 77063; 77067 ==

== ENCOUNTER 2018-12-14 07:37 | Outpatient (CLI) | payer MEDICARE, BC ==
--- NOTE | 2018-12-14 09:55 | BD ---
BONE DENSITOMETRY USING DEXA: HISTORY: Post menopausal screening for osteoporosis. FINDINGS LUMBAR SPINE BMD (g/cm2) T-SCORE Z-SCORE L1 1.074 0.8 2.9 L2 1.206 1.6 4.0 L3 1.264 1.6 4.2 L4 1.203 1.2 3.9 TOTAL 1.190 1.3 3,7 BMD (g/cm2) T-SCORE Z-SCORE NECK 0.775 -0.7 1.5 TOTAL: 0.907 -0.3 1.5 The 10 year fracture risk for a major osteoporotic fracture is 9.2% and for a hip fracture is 1.2%. IMPRESSION: Normal bone mineral density. POS: OFF
== END 2018-12-14 07:38 | disposition home or self-care (01) ==
LOC: BICMAMMO 07:37
PROVIDERS: ATTEND Internal Medicine Rheumatology
DX: M81.0 Age-related osteoporosis without current pathological fracture (principal)
CPT/HCPCS: 77080

== ENCOUNTER 2019-01-21 13:42 | Emergency (ER) | payer MEDICARE, BC ==
[2019-01-21 14:42] LABS: Bilirubin Negative (Negative); Blood, Urine Negative (Negative); Clarity Clear (Clear); Glucose, Urine (Dipstick) Normal (Negative); Leukocyte 250 Leu/uL (Negative); Mucous/LPF Rare LPF (<2+); Nitrite 1+ (Negative); Protein, Urine (Dipstick) Negative (Neg-Trace); RBC/HPF 0-3 HPF (0-3); Squamous Epithelial 0-3 HPF (0-3); Urobilinogen Normal mg/dL (Less than 2); WBC/HPF 21-50 HPF (0-3)
[2019-01-21 14:54] LABS: Bacteria/HPF 4+ HPF (None Seen)
[2019-01-21] MEDS ORDERED: cefTRIAXone\\ROCEPHIN 1 GM VIAL ONE ×2 (15:31→15:40)
[2019-01-21] MEDS ORDERED: Lidocaine 1% (PF) 30 ML VIAL ONE (15:31)
[2019-01-21] MEDS ORDERED: Lidocaine 1% PF 5 ML VIAL ONE (15:40)
== END 2019-01-21 15:50 | disposition home or self-care (01) ==
LOC: ERS 13:42
DX: N39.0 Urinary tract infection, site not specified (principal); M10.9 Gout, unspecified; K21.9 Gastro-esophageal reflux disease without esophagitis; F41.9 Anxiety disorder, unspecified; F32.9 Major depressive disorder, single episode, unspecified
CPT/HCPCS: 81003; 81015; 87077; 87086; 87186; 96372; 99283; J0696; J2001

== ENCOUNTER 2019-02-14 10:02 | Outpatient (CLI) | payer MEDICARE, BC ==
--- NOTE | 2019-02-14 10:53 | MMO ---
Bilateral MAMMO Bilat Screen [facility]. CLINICAL HISTORY: Patient is 78 years old and is seen for screening. The patient has no family history of breast cancer. The patient has no personal history of cancer. VIEWS: The views performed were: bilateral craniocaudal with tomosynthesis and bilateral mediolateral oblique with tomosynthesis. FILMS COMPARED: The present examination has been compared to prior imaging studies performed at [facility] on 02/26/2015, 03/02/2016, 02/10/2017 and 02/13/2018. This study has been interpreted with the assistance of computer-aided detection. MAMMOGRAM FINDINGS: There are scattered fibroglandular densities. There are benign appearing and vascular calcifications seen in both breasts. There are no suspicious masses, suspicious calcifications, or new areas of architectural distortion. IMPRESSION: THERE IS NO MAMMOGRAPHIC EVIDENCE OF MALIGNANCY. A ROUTINE FOLLOW-UP MAMMOGRAM IN 1 YEAR IS RECOMMENDED. THE RESULTS OF THIS EXAM WERE SENT TO THE PATIENT. ACR BI-RADS Category 2 - Benign finding MAMMOGRAPHY NOTE: 1. A negative mammogram report should not delay a biopsy if a dominant of clinically suspicious mass is present. 2. Approximately 10% to 15% of breast cancers are not detected by mammography. 3. Adenosis and dense breasts may obscure an underlying neoplasm. Reported by: JAS XIONG MD Electonically Signed: [id number]
== END 2019-02-14 10:03 | disposition home or self-care (01) ==
LOC: BICMAMMO 10:02
PROVIDERS: ATTEND Family Medicine
DX: Z12.31 Encounter for screening mammogram for malignant neoplasm of breast (principal)
CPT/HCPCS: 77063; 77067

== ENCOUNTER 2020-02-19 10:13 | Outpatient (CLI) | payer MEDICARE, BC ==
--- NOTE | 2020-02-19 11:32 | MMO ---
Bilateral MAMMO Bilat Screen [facility]. CLINICAL HISTORY: Patient is 79 years old and is seen for screening. The patient has no family history of breast cancer. The patient has no personal history of cancer. VIEWS: The views performed were: bilateral craniocaudal with tomosynthesis and bilateral mediolateral oblique with tomosynthesis. FILMS COMPARED: The present examination has been compared to prior imaging studies performed at [facility] on 03/02/2016, 02/10/2017, 02/13/2018 and 02/14/2019. This study has been interpreted with the assistance of computer-aided detection. MAMMOGRAM FINDINGS: There are scattered fibroglandular densities. Benign calcifications are noted bilaterally. There are no suspicious masses, suspicious calcifications, or new areas of architectural distortion. IMPRESSION: THERE IS NO MAMMOGRAPHIC EVIDENCE OF MALIGNANCY. A ROUTINE FOLLOW-UP MAMMOGRAM IN 1 YEAR IS RECOMMENDED. THE RESULTS OF THIS EXAM WERE SENT TO THE PATIENT. ACR BI-RADS Category 2 - Benign finding MAMMOGRAPHY NOTE: 1. A negative mammogram report should not delay a biopsy if a dominant of clinically suspicious mass is present. 2. Approximately 10% to 15% of breast cancers are not detected by mammography. 3. Adenosis and dense breasts may obscure an underlying neoplasm. Reported by: CLEM RINCON MD Electonically Signed: [id number]
== END 2020-02-19 10:14 | disposition home or self-care (01) ==
LOC: BICMAMMO 10:13
PROVIDERS: ATTEND Family Medicine
DX: Z12.31 Encounter for screening mammogram for malignant neoplasm of breast (principal)
CPT/HCPCS: 77063; 77067

== ENCOUNTER 2020-07-26 02:25 | Inpatient (IN) | payer MEDICARE, BC ==
[2020-07-26 03:10] LABS: #Lymphocytes 1.6 thou/uL (1.20-3.40); #Monocytes 0.7 thou/uL (0.11-0.59); #Neutrophils 3.6 thou/uL (1.40-6.50); %Basophils 0.3 % (0.0-1.0); %Eosinophils 0.2 % (0.0-10.0); %Lymphocytes 26.6 % (21.0-51.0); %Monocytes 11.4 % (0.0-10.0); %Neutrophils 61.4 % (42.0-75.0); Hemoglobin 13.3 g/dL (12.0-16.0); Mean Corpuscular HGB CONC 33.9 g/dL (32.0-36.0); Mean Corpuscular Hemoglobin 30.8 pg (27.0-31.0); Mean Corpuscular Volume 90.9 fL (78.0-98.0); Mean Platelet Volume 6.1 fL (7.4-10.4); Platelet Count 298 thou/uL (130-400); Red Blood Cell (RBC) Count 4.31 mill/uL (4.20-5.40); White Blood Cell (WBC) Count 5.9 thou/uL (4.8-10.8)
[2020-07-26 03:32] LABS: ALT (SGPT) 13 U/L (8-55); AST (SGOT) 14 U/L (5-34); Albumin 4.1 g/dL (3.4-4.8); Alkaline Phosphatase 65 U/L (40-110); Anion Gap 13 mmol/L (10-20); BUN (Urea Nitrogen) 31 mg/dL (9.8-20.1); Bilirubin, Total 0.5 mg/dL (0.2-1.2); Calc. Creatinine Clearance 0 mL/min (70-130); Calcium 10.2 mg/dL (7.8-10.44); Carbon Dioxide 26 mmol/L (23-31); Chloride 105 mmol/L (98-107); Globulin 2.7 g/dL (2.4-3.5); Glucose 104 mg/dL (83-110); Potassium 4.9 mmol/L (3.5-5.1); Protein, Total 6.8 g/dL (5.8-8.1); Sodium 139 mmol/L (136-145)
[2020-07-26] MEDS ORDERED: Acetaminophen 325 MG TAB PO PRN (05:16)
[2020-07-26] MEDS ORDERED: Nitroglycerin 0.4 MG TAB (25 Tab Bottle) SL PRN (05:16)
[2020-07-26] MEDS ORDERED: Ondansetron ODT 4 MG TAB PO PRN (05:16)
[2020-07-26] MEDS ORDERED: Ondansetron PF 4 MG/2 ML Vial IVP PRN (05:16)
[2020-07-26] MEDS ORDERED: Aspirin Chewable 81 MG TAB PO SCH (05:45)
[2020-07-26 06:48] LABS: Troponin I Less than 0.010 ng/mL (< 0.028)
[2020-07-26] MEDS ORDERED: Enoxaparin Sodium 40 MG/0.4 ML SYRINGE SC SCH (09:00)
[2020-07-26 09:45] LABS: Troponin I Less than 0.010 ng/mL (< 0.028)
[2020-07-26] MEDS ORDERED: Enoxaparin Sodium 40 MG/0.4 ML SYRINGE ONE (09:46)
[2020-07-26] MEDS ORDERED: Aspirin Chewable 81 MG TAB ONE (09:46)
[2020-07-26] MEDS: Aspirin Chewable 81 MG TAB PO SCH (09:54)
[2020-07-26] MEDS: Enoxaparin Sodium 40 MG/0.4 ML SYRINGE SC SCH (09:54)
[2020-07-26] MEDS ORDERED: Regadenoson 0.4 MG/5 ML SYRINGE ONE (12:26)
[2020-07-26] MEDS ORDERED: Sodium Chloride 0.9% 1,000 ML IV SCH (19:45)
[2020-07-26] MEDS ORDERED: Amlodipine 5 MG TAB PO SCH (19:45)
[2020-07-26 20:29] VITALS: BMI 26.5
[2020-07-27 06:00] LABS: #Lymphocytes 1.3 thou/uL (1.20-3.40); #Monocytes 0.6 thou/uL (0.11-0.59); #Neutrophils 2.9 thou/uL (1.40-6.50); %Basophils 0.8 % (0.0-1.0); %Eosinophils 0.1 % (0.0-10.0); %Lymphocytes 27.7 % (21.0-51.0); %Monocytes 11.8 % (0.0-10.0); %Neutrophils 59.7 % (42.0-75.0); Hemoglobin 13.5 g/dL (12.0-16.0); Mean Corpuscular HGB CONC 35.3 g/dL (32.0-36.0); Mean Corpuscular Hemoglobin 32.4 pg (27.0-31.0); Mean Corpuscular Volume 91.7 fL (78.0-98.0); Mean Platelet Volume 6.1 fL (7.4-10.4); Platelet Count 268 thou/uL (130-400); Red Blood Cell (RBC) Count 4.18 mill/uL (4.20-5.40); White Blood Cell (WBC) Count 4.8 thou/uL (4.8-10.8)
[2020-07-27 06:28] LABS: Anion Gap 12 mmol/L (10-20); Calc. Creatinine Clearance 60 mL/min (70-130); Calcium 8.9 mg/dL (7.8-10.44); Carbon Dioxide 24 mmol/L (23-31); Chloride 107 mmol/L (98-107); Glucose 101 mg/dL (83-110); Potassium 4.6 mmol/L (3.5-5.1); Sodium 138 mmol/L (136-145)
[2020-07-27 06:34] LABS: BUN (Urea Nitrogen) 27 mg/dL (9.8-20.1)
[2020-07-27] MEDS ORDERED: Amlodipine 5 MG TAB PO SCH (09:00)
[2020-07-27] MEDS: Aspirin Chewable 81 MG TAB PO SCH (09:57)
[2020-07-27] MEDS: Enoxaparin Sodium 40 MG/0.4 ML SYRINGE SC SCH (09:57)
[2020-07-27] MEDS ORDERED: Communication Order-Pharmacy FS SCH (12:30)
[2020-07-27 15:13] LABS: SARS-CoV-2 PCR by NAA Not Detected (NotDetected)
[2020-07-27] MEDS ORDERED: PROBENECID PO SCH (21:00)
[2020-07-27] MEDS ORDERED: Lisinopril 10 MG TAB PO SCH (21:00)
[2020-07-27] MEDS ORDERED: DULoxetine 60 MG CAP PO SCH (21:00)
[2020-07-27] MEDS ORDERED: Fish Oil 1,000 MG CAP PO SCH (21:00)
[2020-07-27] MEDS ORDERED: Multivit, Therapeutic 1 TAB PO SCH (21:00)
[2020-07-27] MEDS ORDERED: COLCHICINE PO SCH (21:00)
[2020-07-27] MEDS ORDERED: Metamucil PACK PO SCH (21:00)
[2020-07-28] MEDS: Sodium Chloride 0.9% 1,000 ML IV SCH ×3 (00:37→11:34)
[2020-07-28 06:17] LABS: PTT 30.7 sec (22.9-36.1); Prothrombin Time 12.9 sec (12.0-14.7)
[2020-07-28 06:27] LABS: Anion Gap 11 mmol/L (10-20); BUN (Urea Nitrogen) 23 mg/dL (9.8-20.1); Calc. Creatinine Clearance 60 mL/min (70-130); Calcium 8.9 mg/dL (7.8-10.44); Carbon Dioxide 23 mmol/L (23-31); Chloride 107 mmol/L (98-107); Glucose 95 mg/dL (83-110); Potassium 4.3 mmol/L (3.5-5.1); Sodium 137 mmol/L (136-145)
[2020-07-28] MEDS: Aspirin Chewable 81 MG TAB PO SCH (07:14)
[2020-07-28] MEDS ORDERED: Lidocaine 1% (PF) 30 ML VIAL ONE (09:34)
[2020-07-28] MEDS ORDERED: Fentanyl 100 MCG/2 ML VIAL ONE (10:40)
[2020-07-28] MEDS ORDERED: Midazolam HCl 2 mg/2 ml Vial ONE (10:40)
[2020-07-28] MEDS ORDERED: Iopamidol 370 76% 100 ML VIAL ONE (10:56)
[2020-07-28] MEDS ORDERED: Sodium Chloride 0.9% 200 ML IV PRN (11:06)
[2020-07-28] MEDS ORDERED: Acetaminophen/Codeine 30-300mg Tablet PO PRN ×2 (11:06)
[2020-07-28 15:04] VITALS: BP 146/67; TEMP 97.9
[2020-07-28 17:43] LABS: Cardiac Risk 4.3 (Less than 4.5)
[2020-07-28] MEDS ORDERED: Atorvastatin Calcium 10 MG TAB PO SCH (21:00)
== END 2020-07-28 17:10 | disposition home or self-care (01) | DRG 287 ==
LOC: ERS 02:25 → ERHOLD 04:44 → 2SW 18:19 → OBSVTOIN 07-27 16:19
PROVIDERS: ADMIT Student in an Organized Health Care Education/Training Program; ATTEND Internal Medicine
PROC: 4A023N7 Measurement of Cardiac Sampling and Pressure, Left Heart, Percutaneous Approach (ICD-10-PCS; principal; 2020-07-28)
PROC: B2111ZZ Fluoroscopy of Multiple Coronary Arteries using Low Osmolar Contrast (ICD-10-PCS; 2020-07-28)
DX: I95.1 Orthostatic hypotension (principal); N17.9 Acute kidney failure, unspecified; R07.9 Chest pain, unspecified; M19.90 Unspecified osteoarthritis, unspecified site; M10.9 Gout, unspecified; Z96.641 Presence of right artificial hip joint; I12.9 Hypertensive chronic kidney disease with stage 1 through stage 4 chronic kidney disease, or unspecified chronic kidney disease; N18.30 Chronic kidney disease, stage 3 unspecified; I25.10 Atherosclerotic heart disease of native coronary artery without angina pectoris; K21.9 Gastro-esophageal reflux disease without esophagitis; Z20.822 Contact with and (suspected) exposure to COVID-19; Z90.710 Acquired absence of both cervix and uterus; Z88.5 Allergy status to narcotic agent; Z91.040 Latex allergy status; Z79.899 Other long term (current) drug therapy
CPT/HCPCS: 36415; 71045; 78452; 80048; 80053; 80061; 84484; 85025; 85610; 85730; 87635; 93005; 93017; 93458; 94760; 96372; 99152; A9500; G0378; J1650; J2001; J2250; J2785; J3010; Q9967; U0003; U0005

== ENCOUNTER 2020-08-21 15:01 | Outpatient (CLI) | payer MEDICARE, BC | END 2020-08-21 15:02 | disposition home or self-care (01) | LOC: BICMAMMO 15:01 | PROVIDERS: ATTEND Internal Medicine Rheumatology | DX: M81.0 Age-related osteoporosis without current pathological fracture (principal); M25.562 Pain in left knee; M17.12 Unilateral primary osteoarthritis, left knee | CPT/HCPCS: 77080 ==

== ENCOUNTER 2021-11-18 09:52 | Outpatient (CLI) | payer MEDICARE, BC | END 2021-11-18 09:53 | disposition home or self-care (01) | LOC: BICMAMMO 09:52 | PROVIDERS: ATTEND Family Medicine | DX: Z12.31 Encounter for screening mammogram for malignant neoplasm of breast (principal) | CPT/HCPCS: 77063; 77067 ==

== ENCOUNTER 2022-04-20 12:24 | Outpatient (CLI) | payer MEDICARE, BC | END 2022-04-20 12:25 | disposition home or self-care (01) | LOC: MRI 12:24 | PROVIDERS: ATTEND Family Medicine | DX: M47.26 Other spondylosis with radiculopathy, lumbar region (principal); M51.16 Intervertebral disc disorders with radiculopathy, lumbar region; M51.9 Unspecified thoracic, thoracolumbar and lumbosacral intervertebral disc disorder; M48.061 Spinal stenosis, lumbar region without neurogenic claudication; M48.07 Spinal stenosis, lumbosacral region; R16.0 Hepatomegaly, not elsewhere classified; K80.20 Calculus of gallbladder without cholecystitis without obstruction | CPT/HCPCS: 72148 ==

== ENCOUNTER 2022-10-23 17:02 | Emergency (ER) | payer MEDICARE, BC ==
[2022-10-23] MEDS ORDERED: Ibuprofen 200 MG TAB ONE ×2 (19:45→19:46)
== END 2022-10-23 22:37 ==
LOC: ERS 17:02
DX: S82.115A Nondisplaced fracture of left tibial spine, initial encounter for closed fracture (principal); K21.9 Gastro-esophageal reflux disease without esophagitis; W18.30XA Fall on same level, unspecified, initial encounter; Z79.899 Other long term (current) drug therapy
CPT/HCPCS: 70450

== ENCOUNTER 2022-11-15 17:06 | Emergency (ER) | payer MEDICARE, BC ==
[2022-11-15 18:17] LABS: #Monocytes 0.5 thou/uL (0.11-0.59); #Neutrophils 3.9 thou/uL (1.40-6.50); %Basophils 0.4 % (0.0-1.0); %Lymphocytes 18.1 % (21.0-51.0); %Monocytes 9.4 % (0.0-10.0); %Neutrophils 71.9 % (42.0-75.0); Hemoglobin 13.1 g/dL (12.0-16.0); Mean Corpuscular HGB CONC 33.6 g/dL (32.0-36.0); Mean Corpuscular Hemoglobin 30.2 pg (27.0-31.0); Mean Corpuscular Volume 89.9 fl (78.0-98.0); Mean Platelet Volume 8.8 fL (7.4-10.4); Platelet Count 231 10x3/uL (130-400); Red Blood Cell (RBC) Count 4.34 mill/uL (4.20-5.40); White Blood Cell (WBC) Count 5.4 10x3/uL (4.8-10.8)
[2022-11-15 18:42] LABS: ALT (SGPT) 21 U/L (8-55); AST (SGOT) 24 U/L (5-34); Albumin 3.9 g/dL (3.4-4.8); Alkaline Phosphatase 95 U/L (40-110); Anion Gap 16 mmol/L (10-20); BUN (Urea Nitrogen) 24 mg/dL (9.8-20.1); Bilirubin, Total 0.5 mg/dL (0.2-1.2); Calc. Creatinine Clearance 0 mL/min (70-130); Carbon Dioxide 23 mmol/L (23-31); Chloride 106 mmol/L (98-107); Estimated GFR 72; Globulin 2.8 g/dL (2.4-3.5); Glucose 110 mg/dL (83-110); Potassium 3.5 mmol/L (3.5-5.1); Protein, Total 6.7 g/dL (5.8-8.1); Sodium 141 mmol/L (136-145)
== END 2022-11-15 19:14 | disposition home or self-care (01) ==
LOC: ERS 17:06
DX: U07.1 COVID-19 (principal); E86.0 Dehydration; K21.9 Gastro-esophageal reflux disease without esophagitis
CPT/HCPCS: 36415; 71045; 80053; 83605; 85025; 96360

== ENCOUNTER 2023-01-10 10:36 | Outpatient (CLI) | payer MEDICARE, BC | END 2023-01-10 10:37 | disposition home or self-care (01) | LOC: BICMAMMO 10:36 | PROVIDERS: ATTEND Family Medicine | DX: Z12.31 Encounter for screening mammogram for malignant neoplasm of breast (principal); Z13.820 Encounter for screening for osteoporosis; M85.852 Other specified disorders of bone density and structure, left thigh; Z78.0 Asymptomatic menopausal state | CPT/HCPCS: 77063; 77067; 77080 ==

== ENCOUNTER 2024-02-24 11:33 | Outpatient (CLI) | payer MEDICARE, BC | END 2024-02-24 11:34 | disposition home or self-care (01) | LOC: BICMAMMO 11:33 | PROVIDERS: ATTEND Family Medicine | DX: Z12.31 Encounter for screening mammogram for malignant neoplasm of breast (principal) | CPT/HCPCS: 77063; 77067 ==

== ENCOUNTER 2025-01-25 10:52 | Outpatient (CLI) | payer MEDICARE, BC | END 2025-01-25 10:53 | disposition home or self-care (01) | LOC: BICMAMMO 10:52 | PROVIDERS: ATTEND Family Medicine | DX: Z13.820 Encounter for screening for osteoporosis (principal); Z78.0 Asymptomatic menopausal state; M85.852 Other specified disorders of bone density and structure, left thigh | CPT/HCPCS: 77080 ==

== ENCOUNTER 2025-01-25 11:51 | Outpatient (CLI) | payer MEDICARE, BC | END 2025-01-25 11:52 | disposition home or self-care (01) | LOC: MRI 11:51 | PROVIDERS: ATTEND Family Medicine | DX: M54.2 Cervicalgia (principal); M47.812 Spondylosis without myelopathy or radiculopathy, cervical region | CPT/HCPCS: 72156 ==